=== PATIENT | male | born 2000 | race Caucasian/White ===

== ENCOUNTER 2021-02-19 22:42 | Emergency (ER) | payer OTHER ==
[~2021-02-19] VITALS: Ht 182.9 cm; Wt 83.9 kg
[2021-02-19 22:51] VITALS: BP 128/75
[2021-02-20] MEDS ORDERED: CEPHALEXIN500 MG PO (00:37)
== END 2021-02-20 00:52 | disposition home or self-care (01) ==
LOC: M.ERS 22:42
DX: L03.012 Cellulitis of left finger (principal)